=== PATIENT | female | born 1960 | race Caucasian/White ===

== ENCOUNTER 2019-11-30 19:04 | Inpatient (IN) ==
[2019-11-30] MEDS ORDERED: Lactated Ringers 1000 ml BAG 1,000 ML IV ONE (19:27)
[2019-11-30 20:24] LABS: ABS Eosinophils 0.2 10^3/ul (0-0.6); ABS Lymphocytes 0.7 10^3/ul (1.0-4.8); ABS Neutrophils 6.6 10^3/ul (1.5-7.7); Eosinophil % 2.8 %; Hematocrit 30 % (35-47); Hemoglobin 9.8 g/dL (12.0-16.0); Lymphocyte % 8.4 %; Mean Corpuscular HGB Conc 33 g/dL (31-36); Mean Corpuscular Hemoglobin 29 pg (27-31); Mean Corpuscular Volume 88 fL (80-97); Mean Platelet Volume 7.1 fL (7.4-10.4); Platelet Count 445 10^3/uL (150-450); Red Blood Count 3.36 10^6 /uL (3.70-4.87); Red Cell Distribution Width 14 % (10-15); White Blood Count 8.5 10^3/uL (3.5-10.8)
[2019-11-30 20:41] LABS: Activated Partial Thrombo Time 36.5 seconds (26.0-38.0); INR 1.48 (0.82-1.09)
[2019-11-30 20:47] LABS: ALT 12 U/L (7-52); Albumin 3.5 g/dL (3.2-5.2); Albumin/Globulin Ratio 0.9 (1-3); Alkaline Phosphatase 66 U/L (34-104); BUN/Creatinine Ratio 29.1 (8-20); Blood Urea Nitrogen 16 mg/dL (6-24); CO2 Carbon Dioxide 26 mmol/L (22-32); Chloride 102 mmol/L (101-111); EGFR African American 137.4 (>60); EGFR Non-African American 113.5 (>60); Globulin 3.9 g/dL (2-4); Glucose 99 mg/dL (70-100); Magnesium 2.2 mg/dL (1.9-2.7); Sodium 137 mmol/L (135-145); Total Protein 7.4 g/dL (6.4-8.9)
[2019-11-30 20:50] LABS: AST 13 U/L (13-39); Anion Gap 9 mmol/L (2-11); Potassium 3.4 mmol/L (3.5-5.0)
[2019-11-30] MEDS ORDERED: Iohexol 350 (CONTRAST) 500 ML MDV IV ONE (21:11)
[2019-11-30 21:22] LABS: T4, Total 11.33 mcg/dL (6.09-12.23)
[2019-11-30 21:26] LABS: TSH Ultra Thyroid Stim Horm 1.61 mcIU/mL (0.34-5.60)
[2019-11-30] MEDS ORDERED: fentaNYL 100 mcg/2 ml 50 MCG/ML VIAL IV SLOW PU ONE (23:12)
[2019-12-01 00:05] LABS: Hematocrit for Retic CNT 29 % (35-47); RBC Retic Count 3.31 10^6/uL (3.70-4.87)
[2019-12-01 00:12] LABS: C Reactive Protein 229.13 mg/L (<8.01); Total Iron Binding Capacity 230 mcg/dL (250-450); Transferrin 164 mg/dL (203-362)
[2019-12-01 00:34] LABS: Ferritin 110.7 ng/mL (11-307)
[2019-12-01 00:38] LABS: Folate > 20.00 ng/mL (>3.99)
[2019-12-01 00:39] LABS: Vitamin B12 375 pg/mL (180-914)
[2019-12-01 01:03] LABS: Erythrocyte Sed Rate 90 mm/Hr (0-29)
[2019-12-01] MEDS ORDERED: NS 0.9% 1000 ml BAG 1,000 ML IV SCH (01:30)
[2019-12-01 01:41] LABS: % Iron Saturation 6 % (15-55); Iron 14 ug/dL (50-212); Unsaturated Iron Binding < 215 ug/dL
[2019-12-01 13:26] VITALS: BP 139/100
[2019-12-01] MEDS ORDERED: Iron Sucrose 200 MG in NS 0.9% 100 ml BAG 100 ML IVPB SCH (15:00)
== END 2019-12-01 16:45 | disposition home or self-care (01) | DRG 207 ==
LOC: ED 19:04 → MED 12-01 02:07
PROVIDERS: ADMIT Hospitalist; ATTEND Internal Medicine